=== PATIENT | male | born 1960 | race Caucasian/White ===

== ENCOUNTER 2021-02-06 14:38 | Outpatient (CLI) | payer BC | END 2021-02-06 14:39 | disposition home or self-care (01) | LOC: TBSIIMAG 14:38 | PROVIDERS: ATTEND Family Medicine | DX: M25.551 Pain in right hip (principal); M16.11 Unilateral primary osteoarthritis, right hip; S73.101A Unspecified sprain of right hip, initial encounter; M24.852 Other specific joint derangements of left hip, not elsewhere classified; M67.853 Other specified disorders of tendon, right hip ==